=== PATIENT | female | born 1995 | race Two or more races ===

== ENCOUNTER 2019-11-20 13:20 | Outpatient (CLI) | payer MEDICAID, OTHER ==
[~2019-11-20] VITALS: Ht 162.6 cm; Wt 95.0 kg
[~2019-11-20 13:20] MED LIST: DOCU-131 PO; HYDR-3240 PO; IBUP-1222 PO; IBUP200T49 PO; PREN1TAB98 PO
== END 2019-11-20 14:57 | disposition home or self-care (01) ==
LOC: LDOP 13:20
PROVIDERS: ATTEND Obstetrics & Gynecology
DX: O16.2 Unspecified maternal hypertension, second trimester (principal); Z3A.27 27 weeks gestation of pregnancy
CPT/HCPCS: 59025; 76815; 84112; 99211; G0463

== ENCOUNTER 2020-02-09 13:50 | Outpatient (CLI) | payer OTHER ==
[~2020-02-09] VITALS: Ht 162.6 cm; Wt 98.6 kg
== END 2020-02-09 15:25 | disposition home or self-care (01) ==
LOC: LDOP 13:50
PROVIDERS: ATTEND Obstetrics & Gynecology
DX: O26.893 Other specified pregnancy related conditions, third trimester (principal); R10.9 Unspecified abdominal pain; Z3A.39 39 weeks gestation of pregnancy
CPT/HCPCS: 59025

== ENCOUNTER 2020-02-14 15:21 | Outpatient (CLI) | payer OTHER ==
[~2020-02-14] VITALS: Ht 162.6 cm; Wt 96.8 kg
[2020-02-14 16:00] VITALS: BP 115/57
== END 2020-02-14 20:00 | disposition home or self-care (01) ==
LOC: LDOP 15:21
PROVIDERS: ATTEND Obstetrics & Gynecology
DX: O42.92 Full-term premature rupture of membranes, unspecified as to length of time between rupture and onset of labor (principal); Z3A.40 40 weeks gestation of pregnancy
CPT/HCPCS: 59025; 84112

== ENCOUNTER 2020-02-18 06:05 | Inpatient (IN) | payer OTHER ==
[~2020-02-18] VITALS: Ht 162.6 cm; Wt 96.8 kg
[2020-02-18] MEDS ORDERED: NEWBORN KIT ONE (07:13)
[2020-02-18] MEDS ORDERED: OXYTOCIN 30U/ 0.9% NaCL 500ML 500 ML ONE ×2 (07:14→17:17)
[2020-02-18] MEDS ORDERED: MISOPROSTOL 200 MCG TABLET ONE (07:14)
[2020-02-18] MEDS ORDERED: LIDOCAINE 1%, 20ML ONE (07:14)
[2020-02-18 07:26] LABS: BASOPHILS % (AUTO) 1 % (0-1); EOSINOPHILS % (AUTO) 0 % (1-7); LYMPHOCYTES % (AUTO) 18 % (22-44); MEAN CORPUSCULAR HGB CONC 33.7 g/dL (32.4-35.8); MEAN PLATELET VOLUME 8.1 fL (7.4-10.4); MONOCYTES % (AUTO) 6 % (2-9); NEUTROPHILS % (AUTO) 75 % (42-75); PLATELET COUNT 217 x10^3/uL (130-400); RED BLOOD COUNT 4.24 x10^6/uL (3.82-5.3); RED CELL DISTRIBUTION WIDTH 13.7 % (9.6-15.2)
[2020-02-18 07:30] LABS: MD NO
[2020-02-18] MEDS ORDERED: LACTATED RINGERS 1,000 ML IV SCH (07:30)
[2020-02-18] MEDS ORDERED: OXYTOCIN 30U/ 0.9% NaCL 500ML 500 ML IV ONE (07:30)
[2020-02-18] MEDS: D5%-LACTATED RINGERS 1,000 ML IV SCH ×2 (07:30→15:30)
[2020-02-18] MEDS ORDERED: SODIUM CITRATE/CITRIC ACID 30 ML UDC PO PRN (07:30)
[2020-02-18] MEDS ORDERED: FENTANYL PF 100 MCG/2ML IVPush PRN (07:30)
[2020-02-18] MEDS ORDERED: OXYTOCIN 30U/ 0.9% NaCL 500ML 500 ML IV PRN ×2 (07:30)
[2020-02-18] MEDS ORDERED: TERBUTALINE 1 MG/ML, 1ML SQ PRN (07:30)
[2020-02-18] MEDS ORDERED: TERBUTALINE 1 MG/ML, 1ML IVPush PRN (07:30)
[2020-02-18] MEDS ORDERED: ONDANSETRON 2MG/ML, 2ML IVPush PRN (07:30)
[2020-02-18] MEDS: PLEASE ENTER HEIGHT AND WEIGHT MC SCH ×2 (07:30→15:30)
[2020-02-18] MEDS ORDERED: CALCIUM CARBONATE 500 MG TAB.CHEW PO PRN (07:30)
[2020-02-18] MEDS ORDERED: FENTANYL PF 100 MCG/2ML IV PRN (07:30)
[2020-02-18] MEDS: LACTATED RINGERS 1,000 ML IVBOLUS PRN ×3 (08:00→12:00)
[2020-02-18] MEDS: LACTATED RINGERS 1,000 ML IV SCH ×5 (08:45→21:18)
[2020-02-18] MEDS ORDERED: FENTANYL/BUPIV./NS/PF 250 ML EPIDCONT ONE (08:45)
[2020-02-18] MEDS ORDERED: BUPIVACAINE 0.25% ONE (08:46)
[2020-02-18] MEDS ORDERED: EPHEDRINE 50 MG/ML, 1ML IVPush PRN (09:00)
[2020-02-18] MEDS ORDERED: NALOXONE 0.4 MG/ML, 1ML IVPush PRN (09:00)
[2020-02-18] MEDS ORDERED: FENTANYL/BUPIV./NS/PF 250 ML EPIDCONT SCH (09:00)
[2020-02-18] MEDS ORDERED: FENTANYL PF 100 MCG/2ML ONE ×2 (09:12→14:48)
[2020-02-18] MEDS ORDERED: EPHEDRINE 50 MG/ML, 1ML ONE (10:21)
[2020-02-18] MEDS ORDERED: MISOPROSTOL 200 MCG TABLET PR PRN (16:30)
[2020-02-18] MEDS ORDERED: DOCUSATE 100 MG CAPSULE PO PRN (16:30)
[2020-02-18] MEDS ORDERED: ACETAMINOPHEN 325 MG TABLET PO PRN (16:30)
[2020-02-18] MEDS: OXYTOCIN 30U/ 0.9% NaCL 500ML 500 ML IV SCH (16:30)
[2020-02-18] MEDS ORDERED: SIMETHICONE 80 MG CHEW TAB PO PRN (16:30)
[2020-02-18] MEDS ORDERED: ONDANSETRON 2MG/ML, 2ML IV PRN (16:30)
[2020-02-18] MEDS ORDERED: METHYLERGONOVINE 0.2 MG/ML IM PRN (16:30)
[2020-02-18] MEDS ORDERED: OXYcodone/APAP 5/325MG TABLET PO PRN ×2 (16:30)
[2020-02-18] MEDS ORDERED: ONDANSETRON 2MG/ML, 2ML ONE (18:12)
[2020-02-18 19:30] VITALS: BP 119/75
[2020-02-18] MEDS: IBUPROFEN 600 MG TABLET PO PRN (21:12)
[2020-02-19 00:33] VITALS: BP 122/79
[2020-02-19] MEDS: LACTATED RINGERS 1,000 ML IV SCH ×2 (01:00→09:00)
[2020-02-19] MEDS: OXYTOCIN 30U/ 0.9% NaCL 500ML 500 ML IV SCH ×2 (02:30→12:30)
[2020-02-19 04:00] VITALS: BP 98/62
[2020-02-19 05:02] LABS: BASOPHILS % (AUTO) 0 % (0-1); EOSINOPHILS % (AUTO) 1 % (1-7); LYMPHOCYTES % (AUTO) 22 % (22-44); MEAN CORPUSCULAR HEMOGLOBIN 26.7 pg (27.0-34.8); MEAN CORPUSCULAR HGB CONC 33.3 g/dL (32.4-35.8); MEAN PLATELET VOLUME 8.3 fL (7.4-10.4); MONOCYTES % (AUTO) 7 % (2-9); NEUTROPHILS % (AUTO) 70 % (42-75); PLATELET COUNT 189 x10^3/uL (130-400); RED BLOOD COUNT 3.66 x10^6/uL (3.82-5.3); RED CELL DISTRIBUTION WIDTH 13.5 % (9.6-15.2)
[2020-02-19 05:03] LABS: MD NO
[2020-02-19 07:50] VITALS: BP 103/67
[2020-02-19] MEDS ORDERED: PRENATAL VIT/IRON/FA 1 EACH TABLET PO SCH (09:00)
[2020-02-19] MEDS: IBUPROFEN 600 MG TABLET PO PRN ×2 (09:18→15:02)
[2020-02-19] MEDS ORDERED: PREN1TAB60 PO (09:43)
[2020-02-19] MEDS ORDERED: IBUP-1222 PO (09:43)
[2020-02-19 12:35] VITALS: BP 96/72
== END 2020-02-19 17:30 | disposition home or self-care (01) | DRG 807 ==
LOC: LDIP 06:05 → 2NW 18:57
PROVIDERS: ADMIT Obstetrics & Gynecology; ATTEND Obstetrics & Gynecology
PROC: 10E0XZZ Delivery of Products of Conception, External Approach (ICD-10-PCS; principal; 2020-02-18)
PROC: 10H07YZ Insertion of Other Device into Products of Conception, Via Natural or Artificial Opening (ICD-10-PCS; 2020-02-18)
PROC: 3E0R3BZ Introduction of Anesthetic Agent into Spinal Canal, Percutaneous Approach (ICD-10-PCS; 2020-02-18)
PROC: 00HU33Z Insertion of Infusion Device into Spinal Canal, Percutaneous Approach (ICD-10-PCS; 2020-02-18)
DX: O99.354 Diseases of the nervous system complicating childbirth (principal); Z37.0 Single live birth; Z3A.40 40 weeks gestation of pregnancy; Z82.49 Family history of ischemic heart disease and other diseases of the circulatory system; Z83.3 Family history of diabetes mellitus; Z20.828 Contact with and (suspected) exposure to other viral communicable diseases; G43.909 Migraine, unspecified, not intractable, without status migrainosus
CPT/HCPCS: 36415; 85025; 86592; 86850; 86900; 87635; G0378; J2405; J3010; J7120